=== PATIENT | male | born 1990 | race Caucasian/White ===

== ENCOUNTER 2016-08-19 16:03 | Emergency (ER) | payer MEDICAID ==
[~2016-08-19] VITALS: Ht 182.9 cm; Wt 86.2 kg
[~2016-08-19 16:03] MED LIST: AMOXIL500 MG PO; AURALGAN OT10 ML/BOT OT; BACTRIM DS 8001 TAB PO; CORTISPORIN (GE10 M1 OT; HYDROCODONE1 TABLET PO; ILOTYCIN5 MG/GM OP; KEFLEX 500MG.500 MG PO; LEADER OMEPRAZO20 MG PO; LORTAB 5/500 501 TAB PO; NEXIUM20 MG PO; NOMEDS *; NORCO 325 MG-51 TAB PO; OMEPRAZOLE20 MG PO; RANITIDINE HCL150 MG PO; SUCRALFATE 1GM T1 GM NG; SULFAMETHOXAZOL1 TA6 PO; ULTRACET 325 MG1 TAB PO; ULTRAM50 MG PO; VICODIN 5/500 T1 TAB PO; ZITHROMAX Z-PA250 M1 PO
--- NOTE | 2016-08-19 17:01 | Emergency Room Report ---
History of Present Illness Time Seen by 161Abram Presenting Problem in Triage Pt arrived:Walked Presenting Problem:PT STATES HE WAS AT HOME WORKING WITH SCRAP METAL AND CUT THE TOP OF HIS RIGHT HAND. 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 N Clinical Suspician of Infection? N Mental Status: 1 - Regular (Normal Baseline) Sepsis Risk:Low Sepsis Risk Have you (or family members/close friends) recently traveled outside the [place]? N If Yes, where/when: Have you had exposure to infectious disease within the past month? TB? Other? 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 ALLERGIES Coded Allergies: No Known Allergies (03/06/16) History Medical History General CAD? No Angina: No IN: No Hypertension? No Hyperlipidemia? No CHF? No DVT? No PE? No COPD? No Asthma? No Anemia? No GERD? No Gastric ulcers? No GI Bleed? No Hernia? No Thyroid Problems? No Hypothyroidism? No CVA? No Seizures? No Diabetes? No Insulin Dependent: No Insulin Pump: No Home FSBS? No Renal Insuffiency? No End Stage Renal Disease? No UTI? No Stones? No BPH? No GB Disease: No Nephritic Syndrome? No Asplenia? No Hepatitis? No Sickle Cell Disease? No Arthritis? No Migraines? No Cataracts? No Glaucoma? No MRSA? No HIV? No TB? No Anxiety? No Depression? No Cancer? No More? No Immunization Hx DT/Tetanus 1-4 YRS Surgical Hx Previous Surgery?Y EAR TUBES BILATERAL LEFT GREAT TOE Social History Smoking Hx Smoker: Current Every Day Smoker Tobacco: Yes Type Cigarettes Packs/day < 1 Pack Alcohol Alcohol: No Review of Systems All Other Systems Reviewed and Negative Skin see HPI Physical Exam Vital Signs Vital Signs Date Time Temp Pulse Resp B/P Pulse O2 O2 Flow FiO2 Ox Delivery Rate 08/19 1607 98.7 62 18 122/65 99 General Appearance normal appearance, WD/WN, no apparent distress Respiratory Status No: respiratory distress. 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 No Results/Orders Current Medication Orders Sig/Khloe Start time Last Medication Dose Route Stop Time Status Admin Lidocaine/Epinephrine 0 .STK-MED ONE 08/19 1644 DC .ROUTE Procedures Laceration/Wound Repair Laceration/Wound Repair Risks/benefits discussed with pt/guardian? Yes Tetanus status up to date Wound Location hand Wound Length (cm) 0.75 Wound's Depth, Shape sucutaneous tissue Wound Explored clean Irrigated w/ Saline (ccs) 100 Wound Prep Hibiclens Anesthesia Lidocaine w/Epi Volume Anesthetic (ccs) 1 Wound Debrided none Wound Repaired With sutures Suture Size/Type 4:0, Ethilon Layer Closure No Total Number Sutures 3 Sterile Dressing Applied Yes Splint Applied No Departure Departure Time of Disposition 1700 Disposition DC Home or Self Care(routine) Clinical Impression Primary Impression: Hand laceration Condition STABLE Referrals Trino CANCINO,Carlos Costa (Family) Patient Instructions Laceration Repair Additional Instructions Suture out in one week, Dr. Jameson. Advil, Tylenol as needed Discharge Counseling Counseled pt/family regarding diagnosis, medications/RX, home care, follow up needs ED Critical Care Critical Care No at 1701
--- NOTE | 2016-08-19 17:01 | Emergency Room Report ---
History of Present Illness Time Seen by 161Abram Presenting Problem in Triage Pt arrived:Walked Presenting Problem:PT STATES HE WAS AT HOME WORKING WITH SCRAP METAL AND CUT THE TOP OF HIS RIGHT HAND. 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 N Clinical Suspician of Infection? N Mental Status: 1 - Regular (Normal Baseline) Sepsis Risk:Low Sepsis Risk Have you (or family members/close friends) recently traveled outside the [place]? N If Yes, where/when: Have you had exposure to infectious disease within the past month? TB? Other? 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 ALLERGIES Coded Allergies: No Known Allergies (03/06/16) History Medical History General CAD? No Angina: No IN: No Hypertension? No Hyperlipidemia? No CHF? No DVT? No PE? No COPD? No Asthma? No Anemia? No GERD? No Gastric ulcers? No GI Bleed? No Hernia? No Thyroid Problems? No Hypothyroidism? No CVA? No Seizures? No Diabetes? No Insulin Dependent: No Insulin Pump: No Home FSBS? No Renal Insuffiency? No End Stage Renal Disease? No UTI? No Stones? No BPH? No GB Disease: No Nephritic Syndrome? No Asplenia? No Hepatitis? No Sickle Cell Disease? No Arthritis? No Migraines? No Cataracts? No Glaucoma? No MRSA? No HIV? No TB? No Anxiety? No Depression? No Cancer? No More? No Immunization Hx DT/Tetanus 1-4 YRS Surgical Hx Previous Surgery?Y EAR TUBES BILATERAL LEFT GREAT TOE Social History Smoking Hx Smoker: Current Every Day Smoker Tobacco: Yes Type Cigarettes Packs/day < 1 Pack Alcohol Alcohol: No Review of Systems All Other Systems Reviewed and Negative Skin see HPI Physical Exam Vital Signs Vital Signs Date Time Temp Pulse Resp B/P Pulse O2 O2 Flow FiO2 Ox Delivery Rate 08/19 1607 98.7 62 18 122/65 99 General Appearance normal appearance, WD/WN, no apparent distress Respiratory Status No: respiratory distress. 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 No Results/Orders Current Medication Orders Sig/Khloe Start time Last Medication Dose Route Stop Time Status Admin Lidocaine/Epinephrine 0 .STK-MED ONE 08/19 1644 DC .ROUTE Procedures Laceration/Wound Repair Laceration/Wound Repair Risks/benefits discussed with pt/guardian? Yes Tetanus status up to date Wound Location hand Wound Length (cm) 0.75 Wound's Depth, Shape sucutaneous tissue Wound Explored clean Irrigated w/ Saline (ccs) 100 Wound Prep Hibiclens Anesthesia Lidocaine w/Epi Volume Anesthetic (ccs) 1 Wound Debrided none Wound Repaired With sutures Suture Size/Type 4:0, Ethilon Layer Closure No Total Number Sutures 3 Sterile Dressing Applied Yes Splint Applied No Departure Departure Time of Disposition 1700 Disposition DC Home or Self Care(routine) Clinical Impression Primary Impression: Hand laceration Condition STABLE Referrals Trino CANCINO,Carlos Costa (Family) Patient Instructions Laceration Repair Additional Instructions Suture out in one week, Dr. Jameson. Advil, Tylenol as needed Discharge Counseling Counseled pt/family regarding diagnosis, medications/RX, home care, follow up needs ED Critical Care Critical Care No at 1701
[2016-08-19 17:08] VITALS: BP 122/65
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
--- OUTSIDE RECORDS SUMMARY | 2016-08-26 03:28 | External Medical Summary Rpt ---
Author Author ALEJANDRO Hill, ALEJANDRO Hill Organization [employer] Address Unknown Phone Unavailable
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
--- OUTSIDE RECORDS SUMMARY | 2016-08-26 03:28 | External Medical Summary Rpt ---
Author Author , Organization [employer] Address Unknown Phone Unavailable Purpose Continuity of Care Document - 03-11-2001 through 2016 Immunization Name Date Route CVX Reacti Commen Provid Is Given on t er Refuse d Hep B, Histor H149 No 2001 ical ped/ad Inform ol ation - Source Unspec ified Hep B, Histor H149 No 2001 ical ped/ad Inform ol ation - Source Unspec ified MMR Histor H149 No 2000 ical Inform ation - Source Unspec ified Hep B, Histor H149 No 2000 ical ped/ad Inform ol ation - Source Unspec ified
== END 2016-08-19 17:08 | disposition home or self-care (01) ==
LOC: ER 16:03
PROC: 0HQFXZZ Repair Right Hand Skin, External Approach (ICD-10-PCS; principal; 2016-08-19)
DX: S61.411A Laceration without foreign body of right hand, initial encounter (principal); W26.9XXA Contact with unspecified sharp object(s), initial encounter; Y92.009 Unspecified place in unspecified non-institutional (private) residence as the place of occurrence of the external cause